=== PATIENT | male | born 2000 | race Two or more races ===

== ENCOUNTER 2020-12-01 00:16 | Emergency (ER) | payer OTHER ==
[~2020-12-01] VITALS: Ht 180.3 cm; Wt 78.0 kg
[2020-12-01] MEDS ORDERED: ceFAZolin 1GM/50ML 100 ML IV ONE (00:30)
[2020-12-01] MEDS ORDERED: TETANUS-DIPTH-ACEL PERTUSSIS 0.5ML SYR Tdap IM ONE (00:45)
[2020-12-01] MEDS ORDERED: HYDROmorphone HCL 2 MG/ML VL IV ONE (00:45)
[2020-12-01] MEDS ORDERED: LIDOCAINE 2%HCL (LOCAL ANESTH.) INJ 20ML MDV ONE (01:25)
[2020-12-01] MEDS ORDERED: LIDOCAINE 2%HCL (LOCAL ANESTH.) INJ 10ml MDV IJ ONE (01:45)
[2020-12-01] MEDS ORDERED: BACITRACIN TOP OINT 1 UD PKG TOP ONE (02:00)
[2020-12-01 03:00] VITALS: BP 154/91
== END 2020-12-01 03:43 | disposition home or self-care (01) ==
LOC: ER 00:16
DX: S91.011A Laceration without foreign body, right ankle, initial encounter (principal); W18.39XA Other fall on same level, initial encounter; Y93.89 Activity, other specified; Y92.89 Other specified places as the place of occurrence of the external cause; Y99.8 Other external cause status
CPT/HCPCS: 12002; 73610; 73630; 90471; 90715; 96365; 96375; 99284; J0690; J1170; J2001

== ENCOUNTER 2020-12-19 16:39 | Emergency (ER) | payer OTHER ==
[~2020-12-19] VITALS: Ht 180.3 cm; Wt 77.1 kg
[2020-12-19 17:22] VITALS: BP 145/98
== END 2020-12-19 17:51 | disposition home or self-care (01) ==
LOC: ER 16:39
DX: S91.011D Laceration without foreign body, right ankle, subsequent encounter (principal); X58.XXXD Exposure to other specified factors, subsequent encounter

== ENCOUNTER 2021-02-20 18:35 | Emergency (ER) | payer OTHER ==
[~2021-02-20] VITALS: Ht 177.8 cm; Wt 86.2 kg
[2021-02-20] MEDS ORDERED: ETOMIDATE (2MG/ML) 20ML VIAL IV ONE (18:45)
[2021-02-20] MEDS ORDERED: MIDAZOLAM DRIP 50 mg/50mL 50 ML IV SCH (18:45)
[2021-02-20] MEDS ORDERED: ROCURONIUM 10MG/ML 10ML VIAL IV ONE (18:45)
[2021-02-20] MEDS ORDERED: PROPOFOL 100 ML IV SCH (18:45)
[2021-02-20 19:27] LABS: Hemoglobin 15.8 g/dL (13.5-17.5)
[2021-02-20 19:35] LABS: Alcohol, Urine < 3.0 mg/dL (0-10); Amphetamine Screen, Urine NEGATIVE (NEGATIVE); Barbiturate Scree,Urine NEGATIVE (NEGATIVE); Benzodiazephine Screen, Urine NEGATIVE (NEGATIVE); Cannabinoid Screen, Urine NEGATIVE (NEGATIVE); Cocaine Screen, Urine NEGATIVE (NEGATIVE); Opiate Scree,Urine NEGATIVE (NEGATIVE); Phencyclidine Screen, Urine NEGATIVE (NEGATIVE); Urine Amorphous Crystal FEW /hpf (None Seen); Urine Bacteria NONE SEEN /hpf (None Seen); Urine Blood Negative /uL (Negative); Urine Mucus FEW (None Seen); Urine WBC 3 /hpf (0 - 3)
[2021-02-20 19:35] LABS: Albumin 4.4 g/dL (3.4-5.0); Calcium 8.4 mg/dL (8.5-10.1); Magnesium 2.6 mg/dL (1.6-2.6)
[2021-02-20 19:38] LABS: Hematocrit 45.7 % (41.0-53.0); Lactic Acid w/Reflex 6.5 mmol/L (0.4-2.0); Mean Corpuscular Hemoglobin 32.1 pg (28.0-32.0); Mean Corpuscular Hgb Conc. 34.5 g/dL (32.0-36.0); Mean Corpuscular Volume 93.1 fL (80.0-100.0); Red Blood Cells 4.91 10^6/uL (4.5-5.90); Red Cell Distribution Width 12.2 % (11.8-14.3); White Blood Cell 11.2 10^3/uL (4.4-10.8)
[2021-02-20 19:42] LABS: BUN/Creatinine Ratio 14.6; Bilirubin, Total 0.5 mg/dL (0.2-1.0); Total Protein 8.2 g/dL (6.4-8.2)
[2021-02-20 19:43] LABS: Basophils % (manual) 0 (0.0-2.0); Blast Cells 0; Eosinophils % (manual) 0 (0-7); Metamyelocytes % 0; Myelocytes % 0; Promyelocytes % 0
[2021-02-20 19:50] LABS: Potassium 2.5 mmol/L (3.5-5.1)
[2021-02-20] MEDS ORDERED: MANNITOL 20% SOLN 100 gm/500ml 250 ML IV ONE (20:30)
[2021-02-20 20:33] LABS: Band Neutrophils % (manual) 2; Lymphocytes % (manual) 60 (10.0-50.0)
[2021-02-20 20:34] LABS: Monocytes % (manual) 10 (0-12); Reactive Lymphocytes 3
[2021-02-20] MEDS ORDERED: MANNITOL 20 % (20GM/100ML) 500 ML IV ONE (20:53)
[2021-02-20 22:32] VITALS: BP 148/82
== END 2021-02-20 22:37 | disposition short-term general hospital (02) ==
LOC: EDBD 18:35 → EDUNIT# 18:35 → ER 18:35
DX: S06.300A Unspecified focal traumatic brain injury without loss of consciousness, initial encounter (principal); S06.A1XA Traumatic brain compression with herniation, initial encounter; X58.XXXA Exposure to other specified factors, initial encounter; Y93.89 Activity, other specified; Y92.89 Other specified places as the place of occurrence of the external cause; Y99.8 Other external cause status
CPT/HCPCS: 31500; 36415; 36600; 70450; 71045; 72125; 80053; 80307; 81001; 82542; 82805; 83605; 83735; 84484; 85007; 85027; 87040; 87070; 87077; 87186; 87205; 93005; 96374; 99291; J2250; J2704; 94002